=== PATIENT | female | born 1955 | race Caucasian/White ===

== ENCOUNTER 2020-04-29 15:08 | Emergency (ER) | payer MEDICARE, OTHER ==
[~2020-04-29] VITALS: Ht 162.6 cm; Wt 76.9 kg
[~2020-04-29 15:08] MED LIST: ALPR1TAB2 PO; METO25TA35 PO; SERT100T PO; ZOLP10TA PO
[2020-04-29 15:12] VITALS: BP 133/55
[2020-04-29] MEDS ORDERED: SODIUM CHLORIDE FLUSH 10ML SYR IVF ONE ×2 (15:30→16:00)
--- NOTE | 2020-04-29 15:30 | NUR ---
PT TO XR.
--- NOTE | 2020-04-29 15:54 | NUR ---
PIV STARTED AND LABS DRAWN. PT RESTING ON [employer] W/ CALL LIGHT IN REACH, RESP EVEN AND UNLABORED, ANTONI.
[2020-04-29] MEDS ORDERED: AMPICILLIN/SULBACTAM 3 GM in SODIUM CHLORIDE 0.9% 100 ML IV ONE (16:00)
[2020-04-29 16:03] LABS: BASOPHILS % (AUTO) 1 % (0-1); EOSINOPHILS % (AUTO) 1 % (1-7); LYMPHOCYTES % (AUTO) 7 % (22-44); MEAN CORPUSCULAR HEMOGLOBIN 27.2 pg (27.0-34.8); MEAN CORPUSCULAR HGB CONC 32.5 g/dL (32.4-35.8); MEAN PLATELET VOLUME 5.9 fL (7.4-10.4); MONOCYTES % (AUTO) 5 % (2-9); NEUTROPHILS % (AUTO) 88 % (42-75); PLATELET COUNT 373 x10^3/uL (130-400); RED BLOOD COUNT 4.74 x10^6/uL (3.82-5.3); RED CELL DISTRIBUTION WIDTH 14.4 % (9.6-15.2)
--- NOTE | 2020-04-29 16:10 | NUR ---
ABX SENT FROM PHARMACY LEAKING, MED REREQUESTED.
[2020-04-29 16:20] LABS: ALBUMIN 3.7 g/dL (3.4-5.0); ANION GAP 8 mmol/L (5-15); CALCIUM 8.7 mg/dL (8.5-10.1); CHLORIDE 102 mmol/L (98-107); CREATININE 1.19 mg/dL (0.55-1.02)
[2020-04-29 16:21] LABS: MD SCAN
--- NOTE | 2020-04-29 16:44 | NUR ---
TELEPHONE CALL TO PHARM REGARDING DELAY IN ABX, STATES ITS ON THE WAY.
[2020-04-29] MEDS ORDERED: NEOSPORIN OINT. PKT 1 PACKET ONE (16:48)
--- NOTE | 2020-04-29 17:07 | NUR ---
TELEPHONE CALL TO PHARMACY REGARDING ABX. STATES WILL TUBE DOWN NOW.
--- NOTE | 2020-04-29 17:55 | NUR ---
PRE AND OXYACETYLENE BURNER DIAN SANCHEZ, ILAN TO PROVIDE PT W/ SUPPLIES NECESSARY FOR IM INJECTIONS. PT VERBALIZED UNDERSTANDING OF DC INSTRUCTIONS. RESP EVEN AND UNLABORED, NADN. AMBULATORY TO DC DESK W/ A STEADY GAIT.
== END 2020-04-29 18:05 | disposition home or self-care (01) ==
LOC: ED 17:45
DX: S61.252A Open bite of right middle finger without damage to nail, initial encounter (principal); L03.011 Cellulitis of right finger; W55.01XA Bitten by cat, initial encounter; Y93.89 Activity, other specified; Y92.009 Unspecified place in unspecified non-institutional (private) residence as the place of occurrence of the external cause; Y99.8 Other external cause status
CPT/HCPCS: 29125; 36415; 80048; 82040; 85025; 99284

== ENCOUNTER 2020-05-01 10:29 | Emergency (ER) | payer MEDICARE ==
[~2020-05-01] VITALS: Ht 162.6 cm; Wt 76.4 kg
[2020-05-01 10:49] VITALS: BP 151/67
[2020-05-01] MEDS ORDERED: LIDOCAINE-MPF 2% ,5ML ONE (12:08)
== END 2020-05-01 12:43 | disposition home or self-care (01) ==
LOC: ED 12:10
DX: S61.252D Open bite of right middle finger without damage to nail, subsequent encounter (principal); Z48.00 Encounter for change or removal of nonsurgical wound dressing; W55.01XD Bitten by cat, subsequent encounter
CPT/HCPCS: 99281